=== PATIENT | male | born 1985 | race American Indian/Alaskan Native ===

== ENCOUNTER 2017-10-09 23:46 | Emergency (ER) | payer OTHER ==
[2017-10-10 00:54] LABS: Basophils % (Auto) 0.5 % (0.0-1.8); Eosinophils % (Auto) 1.2 % (0.0-4.3); Hematocrit 38.5 % (35.5-45.6); Hemoglobin 12.8 gm/dl (11.8-15.2); Mean Corpuscular HGB Conc 33 % (32-34); Mean Corpuscular Volume 75 fl (84-94); Platelet Count 419 K/mm3 (140-440); Red Blood Count 5.11 M/mm3 (3.65-5.03); Red Cell Distribution Width 13.3 % (13.2-15.2); White Blood Count 9.8 K/mm3 (4.5-11.0)
[2017-10-10 00:59] LABS: Mean Corpuscular Hemoglobin 25 pg (28-32)
[2017-10-10 01:11] LABS: Alanine Aminotransferase 19 units/L (7-56); Albumin 3.8 g/dL (3.9-5); Albumin/Globulin Ratio 0.9 %; Alkaline Phosphatase 63 units/L (35-129); Anion Gap 17 mmol/L; BUN/Creatinine Ratio 9; Blood Urea Nitrogen 8 mg/dL (9-20); Calcium 9.4 mg/dL (8.4-10.2); Carbon Dioxide 27 mmol/L (22-30); Chloride 99.1 mmol/L (98-107); Glucose 101 mg/dL (75-100); Lipase 15 units/L (13-60); Sodium 139 mmol/L (137-145)
--- NOTE | 2017-10-10 02:08 | XRay Report ---
FINAL REPORT EXAM: XR CHEST ROUTINE 2V HISTORY: Productive Cough, Fever TECHNIQUE: PA and lateral views of the chest were submitted. FINDINGS: There is an extensive peripheral infiltrate in the left lower lobe compatible with pneumonia. Pleural fluid is not seen. The right lung is clear. The heart size is normal. There is no evidence of hilar adenopathy. The skeletal structures are well-maintained IMPRESSION: Extensive peripheral left lower lobe pneumonia.
[2017-10-10] MEDS ORDERED: MOTRIN PO ONE (04:26)
--- NOTE | 2017-10-10 04:27 | Emergency Department Report ---
HPI - General Chief Complaint: Upper Respiratory Infection Time Seen by Provider: 10/10/17 03:55 - HPI HPI: Patient reports that he has cough with green patient reports that he has cough with green sputum 2 days. She reports lower back pain since Thursday. He said he has been having fever on and off. Pain is 2/ 10 to lower back throat.. Denies any nausea or vomiting. Reports chills. Denies any medical history. He is taking [id number] cough and cold with minimal relief. Denies any shortness of breath or chest pain. It is worse when he moves around to his back and to store when he swallows or eat. Better without eating and with rest. ED Past Medical Hx - Past Medical History Previous Medical History?: No - Surgical History Past Surgical History?: No - Family History Family history: no significant - Social History Smoking Status: Never Smoker Substance Use Type: None - Medications Home Medications: Home Medications Medication Instructions Recorded Confirmed Last Taken Type Albuterol Sulfate [Ventolin HFA] 2 puff IH Q4H PRN 14 Days #1 10/10/17 Unknown Rx [email or web address] Ibuprofen [Motrin] 600 mg PO Q8H PRN 5 Days #15 tablet 10/10/17 Unknown Rx Levofloxacin [Levaquin] 750 mg PO QDAY 9 Days #9 tablet 10/10/17 Unknown Rx ED Review of Systems ROS: Stated complaint: URI SX Other details as noted in HPI Comment: All other systems reviewed and negative Constitutional: chills, fever, malaise Eyes: denies: eye pain, eye discharge ENT: throat pain, congestion. denies: ear pain Respiratory: cough. denies: orthopnea, shortness of breath, SOB with exertion, SOB at rest, stridor, wheezing Cardiovascular: denies: chest pain, palpitations, dyspnea on exertion, orthopnea , edema, syncope, paroxysmal nocturnal dyspnea Gastrointestinal: denies: abdominal pain, nausea, vomiting, diarrhea, constipation, hematemesis, melena, hematochezia Genitourinary: denies: urgency, dysuria, frequency, hematuria, discharge, testicular pain, testicular mass Musculoskeletal: back pain, myalgia. denies: joint swelling, arthralgia Skin: denies: rash Neurological: denies: headache, weakness, numbness, paresthesias, confusion, abnormal gait, vertigo Physical Exam - Physical Exam Vital Signs: Vital Signs 10/10/17 00:20 Temperature 99.8 F H Pulse Rate 102 H Respiratory 18 Rate Blood Pressure 129/80 [Right] O2 Sat by Pulse 97 Oximetry Vital Signs 10/10/17 10/10/17 10/10/17 00:20 04:40 04:55 Temperature 99.8 F H Pulse Rate 102 H Pulse Rate [ 107 H 103 H Posterior Bilateral Throughout] Respiratory 18 Rate Respiratory 18 18 Rate [Posterior Bilateral Throughout] Blood Pressure 129/80 [Right] O2 Sat by Pulse 97 Oximetry Vital Signs 10/10/17 10/10/17 10/10/17 00:20 04:40 04:55 Temperature 99.8 F H Pulse Rate 102 H Pulse Rate [ 107 H 103 H Posterior Bilateral Throughout] Respiratory 18 Rate Respiratory 18 18 Rate [Posterior Bilateral Throughout] Blood Pressure 129/80 [Right] O2 Sat by Pulse 97 Oximetry 10/10/17 05:34 Temperature 98.1 F Pulse Rate 101 H Pulse Rate [ Posterior Bilateral Throughout] Respiratory 20 Rate Respiratory Rate [Posterior Bilateral Throughout] Blood Pressure 123/81 [Right] O2 Sat by Pulse 98 Oximetry General: Is a 32-year-old male well-nourished well-developed and nontoxic in appearance. Physical Exam: Head: Normocephalic, atraumatic, Eyes: Biateral pupils equal and reactive to light, bilateral EOM intact.. Bilateral conjunctival and sclera without injection, normal accommodation. No nystagmus Mouth: Moist, no pharyngeal exudate or erythema. Uvula is midline and oral airways patent. No peritonsillar abscess. Ears:Jared TM pearly proctor, bilaterally used C without any redness or drainage. No mastoid bone tenderness. Nose: Jared nasal mucosa congested with clear drainage. No maxillary or frontal sinus tenderness. Neck: Supple, No Cervical adenopathy, full range of motion and no C-spine tenderness. Cardiovascular: S1, S2. Heart is 102 .Regular rhythm. No murmur. Capillary refill is less then 3 seconds. Lungs: Clear to auscultate bilaterally. No rhonchi, wheezes or rales. No chest wall tenderness. No chest contusion. No bruising to chest. Positive dry cough MSK: Strength 5/5 in all extremities. No joint deformity or crepitus. Normal inspection. Full range of motion to all extremities. No laceration, abrasion or ecchymotic area noted. Patient able to fully flex and extend bilateral knees without any difficulties. Bilateral knees nontender to palpate. Abdomen: Non-tender to palpate in all quadrants, no guarding or rebound tenderness, positive bowel sounds in all quadrants. No CVA tenderness. No hernia, bruit or mass. No rigidity or distention. Extremities: No clubbing, cyanosis or edema. +2 pulses. No neurovascular compromise Skin: Clean, dry and intact. No rash or lesions. Neurological: GCS at 15, Pt is alert and oriented 3 speech is clear period. Bilateral hand animal chiropractor strong and equal. Normal gait. Negative Romberg and no pronator drift. Normal Reflexes. No motor or sensory deficit Back: No vertebral tenderness, no paraspinal tenderness. Normal inspection and full range of motion Ambulates without any difficulties. Psych: Normal mood and behavior ED Course Vital Signs 10/10/17 00:20 Temperature 99.8 F H Pulse Rate 102 H Respiratory 18 Rate Blood Pressure 129/80 [Right] O2 Sat by Pulse 97 Oximetry Vital Signs 10/10/17 10/10/17 10/10/17 00:20 04:40 04:55 Temperature 99.8 F H Pulse Rate 102 H Pulse Rate [ 107 H 103 H Posterior Bilateral Throughout] Respiratory 18 Rate Respiratory 18 18 Rate [Posterior Bilateral Throughout] Blood Pressure 129/80 [Right] O2 Sat by Pulse 97 Oximetry 10/10/17 05:34 Temperature 98.1 F Pulse Rate 101 H Pulse Rate [ Posterior Bilateral Throughout] Respiratory 20 Rate Respiratory Rate [Posterior Bilateral Throughout] Blood Pressure 123/81 [Right] O2 Sat by Pulse 98 Oximetry - Reevaluation(s) Reevaluation #1: 10/10/17 05:00 Patient found to have pneumonia to his left lower lobe. Radiology impression is extensive per referral left lower lobe pneumonia. The heart size is normal. There is no evidence of Hilar adenopathy. Patient's given Rocephin 1 g IM, Levaquin was started 750 mg by mouth, Xopenex 2.5 mg nebulizer and Atrovent 0.5 mg nebulizer. Patient also given Motrin 800 mg for fever and body aches. He had no adverse reaction from medication. He is able to tolerate oral liquids without any difficulties. Patient looks stable and is nontoxic in appearance. Reevaluation #2: 10/10/17 05:38 Patient remained stable, vital signs are better. ED Medical Decision Making - Lab Data Result diagrams: 10/10/17 00:30 10/10/17 00:30 Lab Results 10/10/17 10/10/17 10/10/17 Range/Units 00:30 00:30 00:30 WBC 9.8 (4.5-11.0) K/mm3 RBC 5.11 H (3.65-5.03) M/mm3 Hgb 12.8 (11.8-15.2) gm/dl Hct 38.5 (35.5-45.6) % MCV 75 L (84-94) fl MCH 25 L (28-32) pg MCHC 33 (32-34) % RDW 13.3 (13.2-15.2) % Plt Count 419 (140-440) K/mm3 Lymph % (Auto) 22.3 (13.4-35.0) % Ransom % (Auto) 12.2 H (0.0-7.3) % Eos % (Auto) 1.2 (0.0-4.3) % Baso % (Auto) 0.5 (0.0-1.8) % Lymph # 2.2 (1.2-5.4) K/mm3 Ransom # 1.2 H (0.0-0.8) K/mm3 Eos # 0.1 (0.0-0.4) K/mm3 Baso # 0.0 (0.0-0.1) K/mm3 Seg Neutrophils % 63.8 (40.0-70.0) % Seg Neutrophils # 6.2 (1.8-7.7) K/mm3 Sodium 139 (137-145) mmol/L Potassium 4.0 (3.6-5.0) mmol/L Chloride 99.1 (98-107) mmol/L Carbon Dioxide 27 (22-30) mmol/L Anion Gap 17 mmol/L BUN 8 L (9-20) mg/dL Creatinine 0.9 (0.8-1.5) mg/dL Estimated GFR > 60 ml/min BUN/Creatinine Ratio 9 % Glucose 101 H (75-100) mg/dL Lactic Acid 0.70 (0.7-2.0) mmol/L Calcium 9.4 (8.4-10.2) mg/dL Total Bilirubin 0.60 (0.1-1.2) mg/dL AST 21 (5-40) units/L ALT 19 (7-56) units/L Alkaline Phosphatase 63 (35-129) units/L Total Protein 8.0 (6.3-8.2) g/dL Albumin 3.8 L (3.9-5) g/dL Albumin/Globulin Ratio 0.9 % Lipase 15 (13-60) units/L Blood cultures drawn and sent Influenza A and B- Rapid Strep negative and culture is pending - Radiology Data Radiology results: report reviewed X-ray reveals extensive perihilar left lower lobe pneumonia - Medical Decision Making ED course: In here complaining of back pain and muscle aches, fever on and off cough with greenish sputum 2 days. Chest x-ray revealed the patient has pneumonia to his left lower lobe. I discussed patient chest x-ray results and I asked him if he is immunocompromised and patient refers that he doesn't have any medical problems. he also says that he's never had pneumonia and does not take any medication. Rapid strep and influenza negative. Patient was given Xopenex 2.5 mg and Atrovent 0.5 mg nebulized in emergency room and says that he feels better and cough is better. He was given Motrin 800 mg by mouth for low- grade for an musculoskeletal pain which is better. Patient was given Rocephin 1 g IM in emergency room with Levaquin 7 edge and 50 mg first dose started in emergency room. He had no adverse reaction from medication. I stressed the patient the importance of him taking his antibiotic as if he does not take antibiotic and other medication prescribed he can develop worsening pneumonia which could lead to hospitalization, infection in his blood and possible due to organ failure. Patient was given good Rx prescription card and was shown how to navigate Internet to find best prices for Levaquin which he demonstrated. Patient orally hydrated and tolerated well. He is able to ambulate, does not look toxic. CBC and CMP stable. Patient discharged home in stable condition with prescription for Levaquin, Ventolin and Motrin. I discussed patient that if his condition worsens and is not able to tolerate oral liquids he needs to return to the emergency room [facility] as that would be considered failed outpatient treatment for community-acquired pneumonia and he will need to be admitted to the hospital for IV antibiotic. She does not have a primary care physician and I discussed with him that he needs to follow-up with some [facility] to call on 10/14/2017 to schedule an appointment status post pneumonia. I also discussed with him that he will need repeat chest x-ray in 10 days after completing an antibiotic to follow-up community acquired pneumonia. I spoke with Dr. Avila regarding patient's presentation, clinical findings, x-ray and lab findings. She saw patient and agrees to treatment plan and patient to return to hospital if he gets worse. Patient discharged home in stable condition with his friend. Critical care attestation.: If time is entered above; I have spent that time in minutes in the direct care of this critically ill patient, excluding procedure time. ED Disposition Clinical Impression: Cough in adult patient, Fever and chills, Body aches Community acquired pneumonia Qualifiers: Laterality: left Lung location: lower lobe of lung Qualified Code(s): J18.1 - Lobar pneumonia, unspecified organism Disposition: TO HOME OR SELFCARE Is pt being admited?: No Does the pt Need Aspirin: No Condition: Stable Instructions: Community-acquired Pneumonia (ED), Acute Cough (ED), Fever in Adults (ED), Levofloxacin (By mouth) Additional Instructions: Please read discharge instructions on community acquired pneumonia, fever in adults, cough in adults and Levaquin strep test and influenza tests were negative Chest x-ray positive for community-acquired pneumonia. Take medication as prescribed. She'll include Levaquin which his antibiotic and ventilating which is to help to open up the lungs seek him breathe better and Motrin to help with body aches and fever Asked over the next 72 hours and increase her fluid intake to 2-3 L of liquid per day. Please follow up at [facility] on 10/14/2017 for follow-up pneumonia but if you condition worsens before then he will need to return to the emergency room. Prescriptions: Albuterol Sulfate [Ventolin HFA] 2 puff IH Q4H PRN 14 Days #1 [email or web address] PRN Reason: COUGH/WHEEZE Ibuprofen [Motrin] 600 mg PO Q8H PRN 5 Days #15 tablet PRN Reason: Pain Levofloxacin [Levaquin] 750 mg PO QDAY 9 Days #9 tablet Referrals: [facility] [Outside] - 10/14/17 Forms: Work/School Release Form(ED), Accompanied Note
[2017-10-10] MEDS ORDERED: ROCEPHIN IM STA (04:29)
[2017-10-10] MEDS ORDERED: ATROVENT IH ONE (04:29)
[2017-10-10] MEDS ORDERED: XOPENEX IH ONE (04:29)
[2017-10-10] MEDS ORDERED: XYLOCAINE 1% MPF 5 mL INFILTRATI ONE (04:29)
[2017-10-10] MEDS ORDERED: LEVAQUIN PO ONE (04:37)
[2017-10-10 05:35] VITALS: BP 123/81
== END 2017-10-10 06:05 | disposition home or self-care (01) ==
LOC: ED 23:46
DX: J18.1 Lobar pneumonia, unspecified organism (principal); R50.9 Fever, unspecified; M79.1 Myalgia
CPT/HCPCS: 36415; 71020; 80053; 82140; 83690; 85025; 87040; 87116; 87400; 87430; 94640; 96372; 99284; J0696